=== PATIENT | female | born 1940 | race African-American/Black ===

== ENCOUNTER 2016-09-16 15:52 | Inpatient (IN) | payer MEDICAID ==
[~2016-09-16] VITALS: Ht 167.6 cm; Wt 72.6 kg
[2016-09-16 16:09] VITALS: BP 184/79
[2016-09-16 16:39] LABS: BASOPHILS % (AUTO) 0.8 % (0.0-2.0); EOSINOPHILS % (AUTO) 0.6 % (0.0-3.0); LYMPHOCYTES % (AUTO) 25.4 % (20.0-45.0); MEAN CORPUSCULAR HEMOGLOBIN 30.1 PG (27.0-31.0); MEAN CORPUSCULAR HGB CONC 34.4 G/DL (32.0-36.0); MEAN CORPUSCULAR VOLUME 87 FL (80-99); MEAN PLATELET VOLUME 10.3 FL (6.5-10.1); MONOCYTES % (AUTO) 8.1 % (1.0-10.0); NEUTROPHILS % (AUTO) 65.2 % (45.0-75.0); PLATELET COUNT 158 K/UL (150-450); RED CELL DISTRIBUTION WIDTH 13.5 % (11.6-14.8); WHITE BLOOD COUNT 11.6 K/UL (4.8-10.8)
[2016-09-16 16:40] LABS: APPEARANCE,URINE CLEAR; KETONES,URINE NEGATIVE (NEGATIVE); LEUKOCYTE ESTERASE ,URINE 2+ (NEGATIVE); NITRITE,URINE NEGATIVE (NEGATIVE); PH,URINE 8 (4.5-8.0); PROTEIN,URINE NEGATIVE (NEGATIVE); UROBILINOGEN,URINE NORMAL MG/DL (0.0-1.0)
[2016-09-16 16:49] LABS: RBC,URINE 0 /HPF (0 - 2)
[2016-09-16 16:50] LABS: SQUAMOUS EPITHELIAL CELL,UR OCCASIONAL /LPF (NONE/OCC); WBC,URINE 0-2 /HPF (0 - 2)
[2016-09-16 16:56] LABS: TROPONIN I < 0.30 ng/mL (<=0.30)
[2016-09-16 16:59] LABS: ALANINE AMINOTRANSFERASE 20 U/L (3-33); ALBUMIN/GLOBULIN RATIO 1.5 (1.0-2.7); ANION GAP 12 (5-15); ASPARTATE AMINO TRANSFERASE 32 U/L (5-40); CALCIUM 9.6 mg/dL (8.6-10.2); CARBON DIOXIDE 31 mEQ/L (20-30); CHLORIDE 97 mEQ/L (98-107); HEMOLYSIS 2; SODIUM 140 mEQ/L (135-145); TOTAL PROTEIN 7.8 g/dL (6.6-8.7)
[2016-09-16 17:00] VITALS: BP 165/80
[2016-09-16 17:10] LABS: CKMB 5.5 ng/mL (< 3.8)
[2016-09-16 18:00] VITALS: BP_SYST 145; BP_SYST 168; BP_DIAS 79; BP_DIAS 85
[2016-09-16] MEDS ORDERED: PRAVASTATIN SOD10 M1 ORAL (18:03)
[2016-09-16] MEDS ORDERED: LOSARTAN POTAS100 MG ORAL (18:03)
[2016-09-16] MEDS ORDERED: DOC-Q-LACE100 M1 ORAL (18:03)
[2016-09-16] MEDS ORDERED: METFORMIN HCL1000 M2 ORAL (18:03)
[2016-09-16] MEDS ORDERED: NORVASC10 MG ORAL (18:03)
[2016-09-16] MEDS ORDERED: FUROSEMIDE40 MG/5 ML ORAL (18:03)
[2016-09-16] MEDS ORDERED: NORMODYNE100 MG ORAL (18:03)
[2016-09-16] MEDS ORDERED: PROTONIX20 MG ORAL (18:03)
[2016-09-16 19:00] VITALS: BP 154/84
--- NOTE | 2016-09-16 19:41 | Emergency Room Report ---
History of Present Illness General Chief Complaint: Generalized Weakness Source: Patient, EMS Present Illness HPI 75-year-old female presents to ED for evaluation. Patient states that since this morning she's had blurry vision and feeling weak. Blood pressure is high in triage. Denies any photophobia. Denies headache nausea or vomiting. Patient states her blood sugar was also low this morning. Has history of diabetes. Denies chest pain or shortness of breath. No aggravating or leading factors. Denies any other associated symptoms Allergies: Coded Allergies: No Known Allergies (Unverified , 09/16/16) Patient History Past Medical History: DM, HTN Past Surgical History: none Pertinent Family History: none Social History: Denies: alcohol use, drug use, smoking Now: No Immunizations: UTD Reviewed Nursing Documentation: PMH: Agreed, PSxH: Agreed Nursing Documentation-PMH Hx Hypertension: Yes Hx Diabetes: Yes Review of Systems All Other Systems: negative except mentioned in HPI Physical Exam Vital Signs Date Time Temp Pulse Resp B/P Pulse Ox O2 Delivery O2 Flow Rate FiO2 09/16/16 15:48 98.4 98 18 192/92 98 Room Air Sp02 EP Interpretation: reviewed, normal General Appearance: no apparent distress, alert, GCS 15, non-toxic Head: normocephalic, atraumatic Eyes: bilateral eye PERRL, bilateral eye normal inspection ENT: hearing grossly normal, normal pharynx, no angioedema, normal voice Neck: full range of motion, supple/symm/no masses Respiratory: chest non-tender, lungs clear, normal breath sounds, speaking full sentences Cardiovascular #1: regular rate, rhythm, no edema Cardiovascular #2: 2+ carotid (R), 2+ carotid (L), 2+ radial (R), 2+ radial (L) , 2+ dorsalis pedis (R), 2+ dorsalis pedis (L) Gastrointestinal: normal bowel sounds, non tender, soft, non-distended, no guarding, no rebound Rectal: deferred Genitourinary: normal inspection, no CVA tenderness Musculoskeletal: back normal, gait/station normal, normal range of motion, non- tender Neurologic: alert, oriented x3, responsive, guide dog trainer III-XII nml as tested, motor strength/tone normal, sensory intact, speech normal Psychiatric: judgement/insight normal, memory normal, mood/affect normal, no suicidal/homicidal ideation Reflexes: 3+ bicep (R), 3+ bicep (L), 3+ tricep (R), 3+ tricep (L), 3+ knee (R) , 3+ knee (L) Skin: normal color, no rash, warm/dry, well hydrated Lymphatic: no adenopathy Medical Decision Making Diagnostic Impression: Primary Impression: Hypertensive urgency Additional Impressions: Hypoglycemia Episode of generalized weakness ER Course Hospital Course 75-year-old female presents ED complaining of dizziness, blurry vision, elevated BP. Differential diagnoses include: WA/unstable angina, CVA/TIA, hypertensive urgency Clinical course Patient placed on stretcher. on athletic monitor. After initial history and physical I ordered labs, EKG, chest x-ray, CT Head labs reviewed- no leukocytosis, hemoglobin/hematocrit stable, glucose 61, troponin negative Chest x-ray- unremarkable EKG - nsr, no acute changes interpreted byme CT head negative patient given food Case discussed with Dr. Shields and he agreed to accept the patient to his service for further care and support I. I feel this is a highly complex case requiring extensive working including EKG/Rhythm strip, Xray/CT/US, Blood/urine lab work, repeat exams while in ED, and administration of strong opiates/narcotics for pain control, admission to hospital or close patient follow up. Diagnosis - hypertensive urgency, hypoglycemia, generalized weakness admitted to telemetry in serious condition Labs Test 09/16/16 16:23 White Blood Count 11.6 K/UL (4.8-10.8) Red Blood Count 3.90 M/UL (4.20-5.40) Hemoglobin 11.7 G/DL (12.0-16.0) Hematocrit 34.0 % (37.0-47.0) Mean Corpuscular Volume 87 FL (80-99) Mean Corpuscular Hemoglobin 30.1 PG (27.0-31.0) Mean Corpuscular Hemoglobin Concent 34.4 G/DL (32.0-36.0) Red Cell Distribution Width 13.5 % (11.6-14.8) Platelet Count 158 K/UL (150-450) Mean Platelet Volume 10.3 FL (6.5-10.1) Neutrophils (%) (Auto) 65.2 % (45.0-75.0) Lymphocytes (%) (Auto) 25.4 % (20.0-45.0) Monocytes (%) (Auto) 8.1 % (1.0-10.0) Eosinophils (%) (Auto) 0.6 % (0.0-3.0) Basophils (%) (Auto) 0.8 % (0.0-2.0) Urine Color Pale yellow Urine Appearance Clear Urine pH 8 (4.5-8.0) Urine Specific [place] 1.010 (1.005-1.035) Urine Protein Negative (NEGATIVE) Urine Glucose (UA) Negative (NEGATIVE) Urine Ketones Negative (NEGATIVE) Urine Occult Blood Negative (NEGATIVE) Urine Nitrite Negative (NEGATIVE) Urine Bilirubin Negative (NEGATIVE) Urine Urobilinogen Normal MG/DL (0.0-1.0) Urine Leukocyte Esterase 2+ (NEGATIVE) Urine RBC 0 /HPF (0 - 2) Urine WBC 0-2 /HPF (0 - 2) Urine Squamous Epithelial Cells Occasional /LPF Urine Bacteria None /HPF (NONE) Sodium Level 140 mEQ/L (135-145) Potassium Level 4.0 mEQ/L (3.4-4.9) Chloride Level 97 mEQ/L (98-107) Carbon Dioxide Level 31 mEQ/L (20-30) Anion Gap 12 (5-15) Blood Urea Nitrogen 24 mg/dL (7-23) Creatinine 1.0 mg/dL (0.5-0.9) Estimat Glomerular Filtration Rate mL/min (>60) Glucose Level 61 mg/dL (74-106) Calcium Level 9.6 mg/dL (8.6-10.2) Total Bilirubin 0.2 mg/dL (0.0-1.2) Aspartate Amino Transf (AST/SGOT) 32 U/L (5-40) Alanine Aminotransferase (ALT/SGPT) 20 U/L (3-33) Alkaline Phosphatase 101 U/L (35-104) Total Creatine Kinase 604 U/L (26-140) Creatine Kinase MB 5.5 ng/mL (< 3.8) Creatine Kinase MB Relative Index 0.9 Troponin I < 0.30 ng/mL (<=0.30) Pro-B-Type Natriuretic Peptide 45 pg/mL (0-450) Total Protein 7.8 g/dL (6.6-8.7) Albumin 4.7 g/dL (3.5-5.2) Globulin 3.1 g/dL Albumin/Globulin Ratio 1.5 (1.0-2.7) EKG Diagnostic Results Rate: normal Rhythm: NSR ST Segments: no acute changes ASA given to the pt in ED: No Rhythm Strip Diag. Results EP Interpretation: yes Rhythm: NSR, no PVC's, no ectopy Chest X-Ray Diagnostic Results Chest X-Ray Diagnostic Results : Chest X-Ray Ordered: Yes # of Views/Limited/Complete: 1 View Indication: Other - dizziness EP Interpretation: Yes Interpretation: no consolidation, no effusion, no pneumothorax, no acute cardiopulmonary disease Impression: No acute disease Interpreting ER Provider: Electronically signed by Cristino Crump MD CT/MRI/US Diagnostic Results CT/MRI/US Diagnostic Results : Imaging Test Ordered: CT head Impression no acute process Last Vital Signs Date Time Temp Pulse Resp B/P Pulse Ox O2 Delivery O2 Flow Rate FiO2 09/16/16 19:00 100 18 154/84 100 Room Air 09/16/16 16:09 98.4 Status: improved Disposition: ADMITTED INPATIENT Condition: Serious Referrals: NON PHYSICIAN (PCP) CRISTINO CRUMP M.D. Sep 16, 2016 19:41
[2016-09-16 20:00] VITALS: BP 172/77
[2016-09-16] MEDS: Docusate 100mg cap ORAL SCH ×2 (20:43→20:48)
[2016-09-16] MEDS: Heparin 5000 units/ml inj SUBQ SCH (20:46)
[2016-09-17] VITALS: BP 153/71
--- NOTE | 2016-09-17 01:00 | History and Physical Report ---
DATE OF ADMISSION: 09/16/2016 CHIEF COMPLAINT: Hypertensive urgency. HISTORY OF PRESENT ILLNESS: The patient is a very pleasant female with a history of hypertension, diabetes, and has a history of glaucoma. She presented with complaints of headaches and uncontrolled hypertension. On evaluation in the emergency room, the patient's systolic blood pressure is 192/92. She was asymptomatic. She had a CAT scan of the head that showed no evidence of any acute stroke in light of her uncontrolled hypertension. She is now admitted for further evaluation and care. She has also been noted to be hypoglycemic. She denies any medication noncompliance. PAST MEDICAL HISTORY: As above. PAST SURGICAL HISTORY: History of a stent. MEDICATIONS: Current medications reconciled and reviewed. ALLERGIES: None. FAMILY HISTORY: Significant for hypertension. SOCIAL HISTORY: Negative for tobacco, ethanol, or drugs. REVIEW OF SYSTEMS: General: No fever or chills. HEENT: Positive headaches. No visual changes. Cardiopulmonary: No chest pain or shortness of breath. Gastrointestinal: No nausea or vomiting. Genitourinary: No urgency or frequency. Musculoskeletal: No joint pain or swelling. Neurologic: No evidence of seizures. PHYSICAL EXAMINATION: GENERAL: The patient is well-developed, in no apparent distress. VITAL SIGNS: Temperature was 98.4 degrees, pulse 98 degrees, respirations 18, and blood pressure 192/92. HEART: Regular rate and rhythm. LUNGS: Lungs are clear. ABDOMEN: Soft, nontender and nondistended. EXTREMITIES: Without clubbing, cyanosis, or edema. NEUROLOGIC: Nonfocal. LABORATORY AND DIAGNOSTIC DATA: Sodium is 140 and creatinine is 1. CK was 604. White count was 12. Urinalysis was clear. EKG showed sinus rhythm. ASSESSMENT: This is a pleasant female with complaints of uncontrolled hypertension. 1. Uncontrolled hypertension. 2. Diabetes with hyperglycemia. PLAN: 1. Titrate antihypertensive regimen. 2. Serial enzymes. 3. Check her TSH in the morning. 4. Discontinue statin in light of the patient's elevated CK level. 5. We will hold her hyperglycemics in light of the patient's hypoglycemia. Bipin Shields M.D. DR: WANG JOB#: [id number] CC:
[2016-09-17] MEDS ORDERED: NOVOLIN 70/305 UNIT1 SUBQ ×2 (01:38)
[2016-09-17 04:00] VITALS: BP 132/69
[2016-09-17 07:52] LABS: BASOPHILS % (AUTO) 0.7 % (0.0-2.0); EOSINOPHILS % (AUTO) 0.6 % (0.0-3.0); LYMPHOCYTES % (AUTO) 31.7 % (20.0-45.0); MEAN CORPUSCULAR HEMOGLOBIN 29.7 PG (27.0-31.0); MEAN CORPUSCULAR HGB CONC 33.4 G/DL (32.0-36.0); MEAN CORPUSCULAR VOLUME 89 FL (80-99); MEAN PLATELET VOLUME 10.6 FL (6.5-10.1); MONOCYTES % (AUTO) 9.5 % (1.0-10.0); NEUTROPHILS % (AUTO) 57.4 % (45.0-75.0); PLATELET COUNT 156 K/UL (150-450); RED BLOOD COUNT 3.87 M/UL (4.20-5.40); RED CELL DISTRIBUTION WIDTH 13.3 % (11.6-14.8); WHITE BLOOD COUNT 9.2 K/UL (4.8-10.8)
[2016-09-17 08:00] VITALS: BP 139/60
[2016-09-17] MEDS: Docusate 100mg cap ORAL SCH (08:48)
[2016-09-17] MEDS: Heparin 5000 units/ml inj SUBQ SCH (08:51)
--- NOTE | 2016-09-17 08:53 | General Progress Note ---
Assessment/Plan Problem List: (1) Hypertension ICD Codes: I10 - Essential (primary) hypertension SNOMED: 68094998 (2) Hypoglycemia ICD Codes: E16.2 - Hypoglycemia, unspecified SNOMED: 190403147 (3) Hypertensive urgency ICD Codes: I16.0 - Hypertensive urgency SNOMED: 047157419 (4) Episode of generalized weakness ICD Codes: R53.1 - Weakness SNOMED: 93828703 Status: stable, progressing Assessment/Plan dc planning later this afternoon if bp and bs controlled/stable Subjective ROS Limited/Unobtainable: No Constitutional: Reports: malaise, weakness HEENT: Reports: no symptoms Cardiovascular: Reports: no symptoms Respiratory: Reports: no symptoms Gastrointestinal/Abdominal: Reports: no symptoms Genitourinary: Reports: no symptoms Neurologic/Psychiatric: Reports: no symptoms Endocrine: Reports: no symptoms Hematologic/Lymphatic: Reports: no symptoms Allergies: Coded Allergies: No Known Allergies (Unverified , 09/16/16) All Systems: reviewed and negative except above Subjective bp better controlled. BS stable. no headaches Objective Last 24 Hour Vital Signs Date Time Temp Pulse Resp B/P Pulse Ox O2 Delivery O2 Flow Rate FiO2 09/17/16 04:00 70 09/17/16 04:00 97.7 76 18 132/69 100 Room Air 09/17/16 00:00 72 09/17/16 00:00 97.7 80 18 153/71 98 Room Air 09/16/16 20:44 85 172/77 09/16/16 20:00 94 09/16/16 20:00 97.5 85 18 172/77 97 Room Air 09/16/16 19:36 98.4 100 18 154/84 100 Room Air 09/16/16 19:00 100 18 154/84 100 Room Air 09/16/16 18:00 94 21 145/85 100 Room Air 09/16/16 17:00 82 16 165/80 100 Room Air 09/16/16 16:09 98.4 91 18 184/79 98 Room Air 09/16/16 15:48 98.4 98 18 192/92 98 Room Air Intake and Output 09/16/16 09/17/16 19:00 07:00 Intake Total 800 ml 1600 ml Output Total 800 ml Balance 0 ml 1600 ml Intake Oral 500 ml 1600 ml IV Total 300 ml Output Urine Total 800 ml # Voids 1 5 Laboratory Tests 09/16/16 16:23: White Blood Count 11.6H, Red Blood Count 3.90L, Hemoglobin 11.7L, Hematocrit 34.0L, Mean Corpuscular Volume 87, Mean Corpuscular Hemoglobin 30.1, Mean Corpuscular Hemoglobin Concent 34.4, Red Cell Distribution Width 13.5, Platelet Count 158, Mean Platelet Volume 10.3H, Neutrophils (%) (Auto) 65.2, Lymphocytes (%) (Auto) 25.4, Monocytes (%) (Auto) 8.1, Eosinophils (%) (Auto) 0.6, Basophils (%) (Auto) 0.8, Urine Color Pale yellow, Urine Appearance Clear, Urine pH 8, Urine Specific [place] 1.010, Urine Protein Negative, Urine Glucose (UA) Negative, Urine Ketones Negative, Urine Occult Blood Negative, Urine Nitrite Negative, Urine Bilirubin Negative, Urine Urobilinogen Normal, Urine Leukocyte Esterase 2+H, Urine RBC 0, Urine WBC 0-2, Urine Squamous Epithelial Cells Occasional, Urine Bacteria None, Sodium Level 140, Potassium Level 4.0, Chloride Level 97L, Carbon Dioxide Level 31H, Anion Gap 12, Blood Urea Nitrogen 24H, Creatinine 1.0H, Estimat Glomerular Filtration Rate , Glucose Level 61L, Calcium Level 9.6, Total Bilirubin 0.2, Aspartate Amino Transf (AST/SGOT) 32, Alanine Aminotransferase (ALT/SGPT) 20, Alkaline Phosphatase 101, Total Creatine Kinase 604H, Creatine Kinase MB 5.5H, Creatine Kinase MB Relative Index 0.9, Troponin I < 0.30, Pro-B-Type Natriuretic Peptide 45, Total Protein 7.8, Albumin 4.7, Globulin 3.1, Albumin/Globulin Ratio 1.5 09/17/16 06:15: White Blood Count 9.2, Red Blood Count 3.87L, Hemoglobin 11.5L, Hematocrit 34.4L , Mean Corpuscular Volume 89, Mean Corpuscular Hemoglobin 29.7, Mean Corpuscular Hemoglobin Concent 33.4, Red Cell Distribution Width 13.3, Platelet Count 156, Mean Platelet Volume 10.6H, Neutrophils (%) (Auto) 57.4, Lymphocytes (%) (Auto) 31.7, Monocytes (%) (Auto) 9.5, Eosinophils (%) (Auto) 0.6, Basophils (%) (Auto) 0.7, Sodium Level [Pending], Potassium Level [Pending], Chloride Level [Pending], Carbon Dioxide Level [Pending], Blood Urea Nitrogen [ Pending], Creatinine [Pending], Estimat Glomerular Filtration Rate [Pending], Glucose Level [Pending], Calcium Level [Pending], Total Bilirubin [Pending], Aspartate Amino Transf (AST/SGOT) [Pending], Alanine Aminotransferase (ALT/SGPT ) [Pending], Alkaline Phosphatase [Pending], Troponin I [Pending], Total Protein [Pending], Albumin [Pending], Globulin [Pending] Height (Feet): 5 Height (Inches): 6.00 Weight (Pounds): 160 General Appearance: WD/WN, alert Neck: supple Cardiovascular: regular rhythm Respiratory/Chest: lungs clear Abdomen: normal bowel sounds, non tender, soft, no organomegaly Edema: no edema noted Arm (L), no edema noted Arm (R), no edema noted Leg (L), no edema noted Leg (R), no edema noted Pedal (L), no edema noted Pedal (R), no edema noted Generalized Neurologic: psych arnp II-XII grossly normal, no motor/sensory deficits, abnormal gait , alert NATALI BENAVIDES Sep 17, 2016 08:53
[2016-09-17] MEDS ORDERED: Losartan 50mg tab ORAL SCH (09:00)
[2016-09-17] MEDS ORDERED: Furosemide 40mg tab ORAL SCH (09:00)
[2016-09-17 09:20] LABS: ALANINE AMINOTRANSFERASE 16 U/L (3-33); ANION GAP 13 (5-15); ASPARTATE AMINO TRANSFERASE 29 U/L (5-40); CALCIUM 9.1 mg/dL (8.6-10.2); CARBON DIOXIDE 26 mEQ/L (20-30); CHLORIDE 98 mEQ/L (98-107); CREATININE 0.9 mg/dL (0.5-0.9); HEMOLYSIS 2; POTASSIUM 3.8 mEQ/L (3.4-4.9); SODIUM 137 mEQ/L (135-145); TOTAL PROTEIN 7.1 g/dL (6.6-8.7)
[2016-09-17 09:43] LABS: TROPONIN I < 0.30 ng/mL (<=0.30)
[2016-09-17 12:00] VITALS: BP 142/80
[2016-09-17 16:00] VITALS: BP 132/69
[2016-09-17] MEDS ORDERED: NORMODYNE100 MG ORAL (17:03)
--- NOTE | 2016-09-18 09:05 | Diagnostic Imaging Report ---
Indication: Dyspnea Comparison: None A single view chest radiograph was obtained. Findings: Cardiomediastinal appearance is within normal limits for age. Pulmonary vascularity is appropriate. The diaphragmatic contour is smooth and costophrenic angles are sharp. No pleural effusions are identified. The bones are osteopenic. Impression: No acute findings
--- NOTE | 2016-09-18 09:05 | Diagnostic Imaging Report ---
Indication: Headache Technique: Contiguous 5 mm thick transaxial imaging of the head obtained in a Siemens Sensation [address] scanner. Soft tissue and bone windows generated. Total Dose length Product (DLP): [address] Dose Index Volume (CTDIvol): 70.38 mGy Comparison: none Findings: There is mild prominence of the ventricles, basal cisterns, and cerebral sulci consistent with atrophy. Mild, nonspecific, white matter hypoattenuation is noted throughout the brain consistent with chronic small vessel disease. There is no midline shift, edema, acute hemorrhage, mass effect, or abnormal extra-axial fluid collections. Bones and extra osseous soft tissues are unremarkable. Impression: No acute intracranial bleed, mass effect or edema. Mild atrophy of the brain. Nonspecific white matter hypoattenuation probably due to chronic small vessel disease. The CT scanner at [facility] is accredited by the [employer] and the scans are performed using dose optimization techniques as appropriate to a performed exam including Automatic Exposure control.
--- NOTE | 2016-09-18 10:07 | Discharge Summary ---
Discharge Summary Hospital Course Date of Admission Sep 16, 2016 at 17:58 Date of Discharge Sep 17, 2016 at 18:39 Admitting Diagnosis Hypertensive Urgency HPI Yanet Naidu is a 75 year old female who was admitted on Sep 16, 2016 at 17: 58 for Hypertensive Urgency Hospital Course dc summary #[id number] Discharge Medications New Medications: Labetalol HCl (Labetalol HCl) 100 Mg Tablet 200 MG ORAL Q12HR for 30 Days, #60 TAB Continued Medications: Amlodipine Besylate (Norvasc) 10 Mg Tablet 10 MG ORAL DAILY, TAB Docusate Sodium (Doc-Q-Lace) 100 Mg Capsule 100 MG ORAL BID, #30 CAP 0 Refills Furosemide (Furosemide) 40 Mg/5 Ml Solution 20 MG ORAL DAILY, ML Insulin Human Isophan/Regular (Humulin 70-30 Vial) 100 Unit/1 Ml Vial 25 UNITS SUBQ ACBREAKFAST, VIAL Insulin Human Isophan/Regular (Humulin 70-30 Vial) 100 Unit/1 Ml Vial 12 UNITS SUBQ QHS, VIAL Losartan Potassium (Losartan Potassium) 100 Mg Tablet 100 MG ORAL DAILY, TAB Pantoprazole Sodium (Protonix) 20 Mg Tablet.dr 40 MG ORAL DAILY, TAB Pravastatin Sod (Pravastatin Sod) 10 Mg Tablet 20 MG ORAL BEDTIME, TAB Discontinued Medications: Labetalol HCl (Labetalol HCl) 100 Mg Tablet 100 MG ORAL EVERY 12 HOURS, TAB Metformin Hcl (Metformin Hcl Er) 1,000 Mg Tab.er.24 1000 MG ORAL BID, TAB Discharge Condition Upon Discharge: stable Discharge Disposition Patient was discharged to Home (01) Discharge Diagnoses: Discharge Instructions Discharge Instructions Special Instructions I have been assigned to complete a D/C Summary on this account. I was not involved in the patient management Gabriella Sol NP (Vanchtein) Sep 18, 2016 10:07
--- NOTE | 2016-09-18 18:58 | Cardiology Report ---
APPROVED REPORT EKG Measurement Heart [id number] Normal sinus rhythm Possible Left atrial enlargement Borderline ECG
--- NOTE | 2016-09-19 04:45 | Discharge Summary 2 SIG ---
DATE OF ADMISSION: 09/16/2016 DATE OF DISCHARGE: 09/17/2016 REASON FOR ADMISSION: This is a 75-year-old female with history of diabetes, hypertension, and glaucoma, presented to emergency room complaining of headache and elevated blood pressure. In the emergency department, her blood pressure was 192/92. The patient had mild leukocytosis of 11.3. Urinalysis was negative. CT of the head revealed no acute intracranial pathology. Chest x-ray revealed no acute cardiopulmonary disease. The patient's blood sugar was 61. CK was 604. The patient admitted for further management. Troponin, first troponin was negative. ProBNP was 45. ADMITTING DIAGNOSES: Include: 1. Hypertensive urgency. 2. Diabetes. 3. Hypoglycemia. HOSPITAL COURSE: The patient admitted to the telemetry floor. Serial troponin x2 were negative. EKG revealed no acute ST changes. The patient was off statin secondary to elevated CK. The patient's anti-glycemic medication were hold secondary to hypoglycemia. Serial troponin x2 were negative. Leukocytosis next day resolved. Renal parameters stable. Blood pressure stabilized. Antihypertensive medication titrated. The patient was on multiple regimen of labetalol 200 mg q.12 h. added to existing regimen of a month's dose of amlodipine and month's dose of Cozaar and also Lasix provided. Blood sugar stabilized. Blood sugar was stable after anti-glycemic were on hold. Blood pressure stabilized with new regimen. The patient was stable for discharge. Follow up with primary medical doctor for further management. Due to the rapid and unexpected improvement in the patient's condition, the patient was discharged in one day. DISCHARGE DIAGNOSES: 1. Hypertensive urgency. 2. Diabetes. 3. Hypoglycemia, resolved. DISCHARGE MEDICATIONS: See medication reconciliation list. New medication, labetalol prescription provided. DISCHARGE INSTRUCTIONS: The patient to follow up with the primary medical doctor next week for blood pressure and blood sugar monitoring. Bipin Shields M.D. I have been assigned to dictate discharge summary on this account and I was not involved in the patient's management. Gabriella trinidadRudi sellers DR: RADHA JOB#: [id number] CC:
== END 2016-09-17 18:39 | disposition home or self-care (01) | DRG 199 ==
LOC: EDBD 15:52 → EMR 16:31 → EDBEDREQ 17:48 → 2E 17:58
DX: I16.0 Hypertensive urgency (principal); E11.649 Type 2 diabetes mellitus with hypoglycemia without coma; H40.9 Unspecified glaucoma; R53.1 Weakness
CPT/HCPCS: 36415; 70450; 71010; 80053; 81003; 82550; 82553; 82962; 83880; 84484; 85025; 93005